=== PATIENT | female | born 1960 | race Caucasian/White ===

== ENCOUNTER 2017-03-20 08:00 | Outpatient (CLI) | payer BC, OTHER | END 2017-03-20 08:01 | disposition home or self-care (01) | LOC: LAB.WCP 08:00 | PROVIDERS: ATTEND Family Medicine | DX: L02.92 Furuncle, unspecified (principal) | CPT/HCPCS: 87070; 87205 ==

== ENCOUNTER 2017-04-13 12:59 | Outpatient (CLI) | payer OTHER | END 2017-04-13 13:00 | disposition home or self-care (01) | LOC: SC 12:59 | PROVIDERS: ATTEND Internal Medicine Pulmonary Disease | DX: G47.10 Hypersomnia, unspecified (principal); R51 Headache; R06.83 Snoring | CPT/HCPCS: 99203; 99212 ==

== ENCOUNTER 2017-05-20 22:10 | Outpatient (CLI) | payer OTHER | END 2017-05-20 22:11 | disposition home or self-care (01) | LOC: SC 22:10 | PROVIDERS: ATTEND Internal Medicine Pulmonary Disease | DX: G47.33 Obstructive sleep apnea (adult) (pediatric) (principal); G47.61 Periodic limb movement disorder | CPT/HCPCS: 95810 ==

== ENCOUNTER 2017-05-21 07:07 | Outpatient (CLI) | payer OTHER ==
[2017-05-21 12:31] LABS: BASOPHILS % (AUTO) 0.6 %; EOSINOPHILS # (AUTO) 0.1 10^3/uL (0.0-0.7); EOSINOPHILS % (AUTO) 1.7 %; HGB - HEMOGLOBIN 15.2 g/dL (12.0-16.0); LYMPHOCYTES # (AUTO) 2.8 10^3/uL (1.5-3.5); LYMPHOCYTES % (AUTO) 49.7 %; MEAN CORPUSCULAR HEMOGLOBIN 31.8 pg (27.0-31.0); MEAN CORPUSCULAR HGB CONC 33.9 g/dL (32.0-36.0); MEAN CORPUSCULAR VOLUME 93.7 fL (81.0-99.0); MEAN PLATELET VOLUME 7.7 fL (7.9-10.8); MONOCYTES # (AUTO) 0.3 10^3/uL (0.0-1.0); MONOCYTES % (AUTO) 5.1 %; NEUTROPHILS # (AUTO) 2.4 10^3/uL (1.5-6.6); NEUTROPHILS % (AUTO) 42.9 %; PLT - PLATELET COUNT 260 10^3/uL (130-450); RED BLOOD COUNT 4.77 10^6/uL (4.20-5.40); RED CELL DISTRIBUTION WIDTH 12.7 % (12.0-15.0); WHITE BLOOD COUNT 5.6 x10^3/uL (4.8-10.8)
[2017-05-21 12:44] LABS: ALBUMIN 4.4 g/dL (3.2-5.5); ALBUMIN/GLOBULIN RATIO 1.5 (1.0-2.2); ALKALINE PHOSPHATASE 59 IU/L (42-121); ALT ALANINE AMINOTRANSFERASE 31 IU/L (10-60); AST ASPARTATE AMINOTRANSFERASE 24 IU/L (10-42); BILIRUBIN,TOTAL 0.5 mg/dL (0.2-1.0); BUN - BLOOD UREA NITROGEN 20 mg/dL (6-20); CALCIUM 9.1 mg/dL (8.5-10.3); CARBON DIOXIDE - CO2 23 mmol/L (21-32); CHLORIDE 104 mmol/L (101-111); CHOL/HDL RATIO 3.8 (<4.4); CHOLESTEROL 211 mg/dL; CREATININE 0.8 mg/dL (0.4-1.0); GFR - MDRD 74 (>89); GLUCOSE 136 mg/dL (70-100); HDL CHOLESTEROL 55 mg/dL; LDL CHOLESTEROL,CALCULATED 130 mg/dL; LDL/HDL RATIO 2.4 (<4.4); SODIUM 136 mmol/L (135-145); TOTAL PROTEIN 7.3 g/dL (6.7-8.2); VLDL CHOLESTEROL 26 mg/dL
[2017-05-21 13:18] LABS: HB2 TOTAL 16.8 g/dL; HEMOGLOBIN A1C 0.87 g/dL; HEMOGLOBIN A1C % 6.9 % (4.6-6.2)
== END 2017-05-21 07:08 | disposition home or self-care (01) ==
LOC: LAB.WCP 07:07
PROVIDERS: ATTEND Family Medicine
DX: Z00.00 Encounter for general adult medical examination without abnormal findings (principal)
CPT/HCPCS: 36415; 80053; 80061; 82043; 83036; 83721; 84443; 85025

== ENCOUNTER 2017-06-08 14:00 | Outpatient (CLI) | payer OTHER | END 2017-06-08 14:01 | disposition home or self-care (01) | LOC: SC 14:00 | PROVIDERS: ATTEND Internal Medicine Pulmonary Disease | DX: G47.33 Obstructive sleep apnea (adult) (pediatric) (principal) | CPT/HCPCS: 99212; 99213 ==

== ENCOUNTER 2018-05-28 15:17 | Outpatient (CLI) | payer OTHER ==
--- NOTE | 2018-05-30 10:24 | Ultrasound Report ---
Reason: PELVIC PAIN Procedure Date: 05/28/2018 Accession Number: [id number] / [id number] Procedure: US - Pelvic w/Transvaginal CPT Code: FULL RESULT: EXAM: PELVIC ULTRASOUND EXAM DATE: 05/28/2018 05:32 PM. CLINICAL HISTORY: Pelvic pain for 1 week. COMPARISON: None. TECHNIQUE: Realtime transabdominal pelvic scan performed to identify the uterus and adnexa and as an overview of other pelvic structures, followed by transvaginal scan to provide greater detail of the uterus and adnexa, with static image documentation. FINDINGS: Uterus: 8.4 x 2.1 x 4.2 cm, volume 38 cc. Anteverted position. Normal overall size and echotexture. Masses: None. Endometrium: 2 mm. Normal. Cervix: Unremarkable. Right Ovary: 2.6 x 1.4 x 1.7 cm, volume 3.2 cc. Normal echotexture and blood flow. Left Ovary: 2.3 x 1.3 x 2.1 cm, volume 3.8 cc. Normal echotexture and blood flow. Free Fluid: None. Other: None. IMPRESSION: Normal pelvic ultrasound. RADIA
== END 2018-05-28 15:18 | disposition home or self-care (01) ==
LOC: DI 15:17
PROVIDERS: ATTEND Nurse Practitioner
DX: R10.2 Pelvic and perineal pain (principal)
CPT/HCPCS: 76830; 76856

== ENCOUNTER 2018-07-19 16:39 | Outpatient (CLI) | payer OTHER ==
--- NOTE | 2018-07-21 09:08 | Mammography Report ---
Reason: SCREENING MAMMOGRAM Procedure Date: 07/19/2018 Accession Number: [id number] / [id number] Procedure: PAVITHRA - Screening Mammo Dig Bilat CPT Code: FULL RESULT: EXAM: Screening Mammo Dig Bilat DATE: 07/19/2018 5:10 PM CLINICAL HISTORY: Screening encounter. History of nulliparity. TECHNIQUE: (B) - Bilateral CC and MLO views were obtained. COMPARISON: 11/05/2016. PARENCHYMAL PATTERN: (A) - The breast(s) demonstrate(s) scattered fibroglandular densities. FINDINGS: A well-circumscribed isodense ovoid nodule in the upper outer left breast is stable dating back to October 2016 with no associated calcifications or architectural distortion. The examination report from the 2017 mammogram refers to previous comparison mammograms performed 03/22/2010 and 10/20/2007 at [facility] [place] and mentions stability with no significant interval change. Comparison to either of these more remote mammograms to definitely establish stability of 2 years or greater would be helpful in classifying the nodule as typically benign. If previous comparison mammograms cannot be made available, ultrasound of the left breast should be performed for further characterization. There are no suspicious masses, calcifications, or areas of distortion. IMPRESSION: Incomplete examination. BI-RADS category 0. RECOMMENDATION: (ADDUS) - Targeted ultrasound recommended. The examination report from the 2017 mammogram refers to previous comparison mammograms performed 03/22/2010 and 10/20/2007 at [facility] [place] and mentions stability with no significant interval change. Comparison to either of these more remote mammograms to definitively establish stability of 2 years or greater would be helpful in classifying the nodule as typically benign. If previous comparison mammograms cannot be made available, ultrasound of the left breast should be performed for further characterization. BI-RADS CATEGORY: (0) - Incomplete Examination - need additional evaluation. STANDARD QUALIFYING STATEMENTS: 1. This examination was not reviewed with the aid of Computer-Aided Detection (CAD). 2. A negative or benign imaging report should not preclude biopsy if clinically suspicious findings are present. 3. Dense breasts may obscure an underlying neoplasm. 4. This examination was reviewed without the aid of 3D breast imaging (tomosynthesis).
== END 2018-07-19 16:40 | disposition home or self-care (01) ==
LOC: DI 16:39
PROVIDERS: ATTEND Obstetrics & Gynecology
DX: Z12.39 Encounter for other screening for malignant neoplasm of breast (principal); N63.21 Unspecified lump in the left breast, upper outer quadrant
CPT/HCPCS: 77063; 77067

== ENCOUNTER 2018-12-03 08:00 | Outpatient (CLI) | payer OTHER ==
[2018-12-03 20:30] LABS: CANDIDA GROUP DNA NEGATIVE (NEGATIVE); CANDIDA KRUSEI DNA NEGATIVE (NEGATIVE); TRICHOMONAS VAGINALIS DNA NEGATIVE (NEGATIVE)
== END 2018-12-03 23:59 | disposition home or self-care (01) ==
LOC: LAB.R 08:00
PROVIDERS: ATTEND Nurse Practitioner Obstetrics & Gynecology
DX: R10.30 Lower abdominal pain, unspecified (principal)
CPT/HCPCS: 87086; 87661; 87801

== ENCOUNTER 2021-03-23 11:14 | Emergency (ER) | payer MEDICAID, OTHER ==
[2021-03-23 11:27] VITALS: BP 148/70
--- NOTE | 2021-03-23 11:34 | ED Physician Documentation ---
History of Present Illness - Stated complaint Stated Complaint: RT FT INJ - Chief complaint Chief Complaint: Trauma Ext - Additonal information Additional information: 61-year-old female presents emergency department for evaluation of acute right foot injury. States that 2 days ago she stepped off the lip of the entrance to her garage and landed awkwardly on the lateral side of her foot. Since then she has had some mild swelling and difficulty bearing full weight. She does report previous history of fracture to this foot. No obvious swelling or deformity. No open sores or lesions. Review of Systems Constitutional: reports: Reviewed and negative Cardiac: reports: Reviewed and negative Respiratory: reports: Reviewed and negative GI: reports: Reviewed and negative Musculoskeletal: reports: Extremity pain Neurologic: reports: Reviewed and negative PD PAST MEDICAL HISTORY - Past Medical History Past Medical History: Yes Respiratory: Sleep apnea Endocrine/Autoimmune: Type 2 diabetes GI: Other Psych: Depression - Past Surgical History Past Surgical History: No - Present Medications Home Medications: Ambulatory Orders Medication Instructions Recorded Confirmed Escitalopram Oxalate [Lexapro] 20 mg PO DAILY 09/12/16 09/12/16 - Allergies Allergies/Adverse Reactions: Allergies Allergy/AdvReac Type Severity Reaction Status Date / Time Penicillins Allergy Rash Verified 03/23/21 11:25 - Social History Does the pt smoke?: No Smoking Status: Never smoker Does the pt drink ETOH?: No Does the pt have substance abuse?: No PD ED PE EXPANDED - General General: Alert, No acute distress, Well developed/nourished - Extremities Extremities: Right foot (Mild tenderness dorsum of the right lateral foot without swelling ecchymosis or crepitus. No pain at the base of the fifth metatarsal. Normal dorsi and plantar flexion. Normal inversion and eversion of foot. Achilles and bilateral malleoli are processes nontender. 2+ DP pulse. Brisk cap refill) Results - Vitals Vitals: Vital Signs - 24 hr 03/23/21 11:21 Temperature 36.5 C Heart Rate 73 Respiratory 14 Rate Blood Pressure 148/70 H O2 Saturation 97 Oxygen O2 Source Room air - Rads (name of study) right foot Radiology: Final report received (no definite fractures are seen on plain film study) PD MEDICAL DECISION MAKING - ED course Complexity details: reviewed results, re-evaluated patient, considered differential, d/w patient ED course: 61-year-old female presents emergency department for evaluation of acute right foot pain after twisting the foot when stepping off a lip in her garage 2 days ago. She has pain on the lateral side of the foot without deformity ecchymosis. She is able to bear nearly full weight on the foot though finds it at the end of the day the foot is more painful. X-rays without acute obvious findings. I have recommended nonweightbearing for the next 3 to 4 days, served of care with ice ibuprofen/Tylenol. If not markedly better in 10 days return for repeat imaging. Emergent return precautions otherwise discussed. Departure - Departure Disposition: Home, Self Care Clinical Impression: Contusion of right foot Qualifiers: Encounter type: initial encounter Qualified Code(s): S90.31XA - Contusion of right foot, initial encounter Condition: Stable Record reviewed to determine appropriate education?: Yes Instructions: ED Contusion Lower Extr Ch Follow-Up: [facility] [Provider Group] Comments: Itzel butler are seen in the emergency department for pain on the outside of your foot after stepping off a lip in your garage 2 days ago. The x-ray does not show an obvious fracture and given your ability to bear nearly full weight I suspect that this is most likely a contusion. I do recommend Tylenol or ibuprofen for discomfort. You may find relief by icing the foot at night. In some cases very subtle or occult fractures are missed on first imaging. Therefore if your symptoms are not markedly better by about 10 days from now it is recommended that you have the foot reimaged.
--- NOTE | 2021-03-23 11:56 | XRAY Report ---
PROCEDURE: Foot 3 View RT INDICATIONS: pain after slipping TECHNIQUE: 3 views of the foot were acquired. COMPARISON: None FINDINGS: Bones: No fractures or dislocations. No suspicious bony lesions. Toe alignment abnormalities can b e seen. An accessory ossicle is seen, an os trigonum. Soft tissues: No tibiotalar joint effusion. Achilles tendon appears normal. IMPRESSION: No definite fractures are seen on this plain film study. In this patient with a given history of trauma, please correlate with focal tenderness. If clinically appropriate, please consider a short-term follow-up plain films series versus a dedicated CT study. Reviewed by: Darinel Andrews MD on 03/23/2021 10:54 AM [facility] Approved by: Darinel Andrews MD on 03/23/2021 10:54 AM [facility] Station ID: [id number]
== END 2021-03-23 12:28 | disposition home or self-care (01) ==
LOC: ED 11:14
DX: S90.31XA Contusion of right foot, initial encounter (principal); X50.1XXA Overexertion from prolonged static or awkward postures, initial encounter; Y93.89 Activity, other specified; Y92.008 Other place in unspecified non-institutional (private) residence as the place of occurrence of the external cause
CPT/HCPCS: 99282; 99283

== ENCOUNTER 2021-06-18 08:48 | Outpatient (CLI) | payer MEDICAID ==
[2021-06-18 16:52] LABS: ALBUMIN/GLOBULIN RATIO 1.4 (1.0-2.2); ALKALINE PHOSPHATASE 48 IU/L (42-121); ALT ALANINE AMINOTRANSFERASE 20 IU/L (10-60); AST ASPARTATE AMINOTRANSFERASE 17 IU/L (10-42); BILIRUBIN,TOTAL 0.5 mg/dL (0.2-1.0); BUN - BLOOD UREA NITROGEN 18 mg/dL (6-20); CALCIUM 9.2 mg/dL (8.5-10.3); CARBON DIOXIDE - CO2 26 mmol/L (21-32); CHLORIDE 106 mmol/L (101-111); CHOL/HDL RATIO 3.3 (<4.4); CHOLESTEROL 198 mg/dL; CREATININE 0.6 mg/dL (0.4-1.0); GFR - MDRD 102 (>89); GLUCOSE 114 mg/dL (70-100); HDL CHOLESTEROL 60 mg/dL; LDL CHOLESTEROL,CALCULATED 122 mg/dL; POTASSIUM 4.3 mmol/L (3.5-5.0); SODIUM 139 mmol/L (135-145); TOTAL PROTEIN 6.9 g/dL (6.7-8.2); TRIGLYCERIDES 80 mg/dL; VLDL CHOLESTEROL 16 mg/dL
[2021-06-18 16:58] LABS: CORTISOL 9.8 ug/dL
[2021-06-18 17:02] LABS: THYROID STIMULATING HORMONE 1.24 uIU/mL (0.34-5.60)
[2021-06-19 05:12] LABS: HCV AB <0.1 s/co ratio (0.0-0.9)
[2021-06-19 08:11] LABS: HIV SCREEN 4TH GENERATION Non Reactive (Non Reactive)
== END 2021-06-18 23:59 | disposition home or self-care (01) ==
LOC: LAB.R 08:48
PROVIDERS: ATTEND Internal Medicine
DX: F41.9 Anxiety disorder, unspecified (principal); E11.9 Type 2 diabetes mellitus without complications; R21 Rash and other nonspecific skin eruption; F32.A Depression, unspecified; Z20.2 Contact with and (suspected) exposure to infections with a predominantly sexual mode of transmission
CPT/HCPCS: 80053; 80061; 82533; 83036; 83721; 84443; 85025; 86780; 86803; 87389; 87522

== ENCOUNTER 2021-07-11 08:51 | Outpatient (CLI) | payer MEDICAID ==
[2021-07-11 16:04] LABS: BASOPHILS # (AUTO) 0.1 10^3/uL (0.0-0.1); BASOPHILS % (AUTO) 0.9 %; EOSINOPHILS # (AUTO) 0.1 10^3/uL (0.0-0.7); EOSINOPHILS % (AUTO) 1.8 %; HCT - HEMATOCRIT 45.2 % (37.0-47.0); HGB - HEMOGLOBIN 15.4 g/dL (12.0-16.0); LYMPHOCYTES # (AUTO) 2.4 10^3/uL (1.5-3.5); LYMPHOCYTES % (AUTO) 43.7 %; MEAN CORPUSCULAR HEMOGLOBIN 32.2 pg (27.0-31.0); MEAN CORPUSCULAR HGB CONC 34.1 g/dL (32.0-36.0); MEAN CORPUSCULAR VOLUME 94.4 fL (81.0-99.0); MEAN PLATELET VOLUME 9.6 fL (7.9-10.8); MONOCYTES # (AUTO) 0.4 10^3/uL (0.0-1.0); MONOCYTES % (AUTO) 6.6 %; NEUTROPHILS # (AUTO) 2.6 10^3/uL (1.5-6.6); NEUTROPHILS % (AUTO) 46.8 %; PLT - PLATELET COUNT 248 10^3/uL (130-450); RED BLOOD COUNT 4.79 10^6/uL (4.20-5.40); RED CELL DISTRIBUTION WIDTH 11.6 % (12.0-15.0); WHITE BLOOD COUNT 5.5 x10^3/uL (4.8-10.8)
[2021-07-11 20:11] LABS: ESTIMATED AVERAGE GLUCOSE 143 mg/dL (70-100); HEMOGLOBIN A1c% 6.6 % (4.27-6.07)
== END 2021-07-11 23:59 | disposition home or self-care (01) ==
LOC: LAB.R 08:51
PROVIDERS: ATTEND Internal Medicine
DX: F41.9 Anxiety disorder, unspecified (principal); F32.A Depression, unspecified; E11.9 Type 2 diabetes mellitus without complications; R21 Rash and other nonspecific skin eruption
CPT/HCPCS: 83036; 85025

== ENCOUNTER 2023-09-03 11:44 | Outpatient (CLI) | payer MEDICAID | END 2023-09-03 11:45 | disposition home or self-care (01) | LOC: NS 11:44 | PROVIDERS: ATTEND Internal Medicine | DX: E11.9 Type 2 diabetes mellitus without complications (principal); Z71.3 Dietary counseling and surveillance; Z71.89 Other specified counseling ==